=== PATIENT | female | born 1935 | race Caucasian/White ===

== ENCOUNTER 2018-01-07 12:47 | Emergency (ER) | payer MEDICARE, BC ==
[2018-01-07 13:30] LABS: AMORPHOUS SEDIMENT,URINE TRACE /HPF; APPEARANCE,URINE SLIGHTLY-CLOUDY; BILIRUBIN,URINE NEGATIVE (NEGATIVE); COLOR,URINE YELLOW; GLUCOSE, URINE NEGATIVE (NEGATIVE); KETONES,URINE NEGATIVE (NEGATIVE); LEUKOCYTE ESTERASE,URINE NEGATIVE (NEGATIVE); NITRITE,URINE NEGATIVE (NEGATIVE); PROTEIN,URINE NEGATIVE (NEGATIVE); URINE SPECIFIC GRAVITY 1.017; UROBILINOGEN,URINE NEGATIVE mg/dL (<2.0)
--- NOTE | 2018-01-07 14:31 | ER Document Report ---
ED Medical Screen (RME) - General Chief Complaint: Flank Pain Stated Complaint: BACK PAIN Time Seen by Provider: 01/07/18 14:27 Mode of Arrival: Wheelchair Information source: Patient Notes: This is an 82-year-old female with a history of an intracranial bleed, hypertension is brought in by home health care workers because of progressively worsening lumbar pain. The caregivers deny any febrile illnesses of late. Patient started having back pain 1 month ago and had a manipulation by the chiropractor 1 month ago and it was worse after the manipulation. The initial back pain episode seems to follow an episode where she was trying to clean the floor and may have fallen. There is also a history where she fell on her buttocks from the commode. The home health care workers state that she is able to walk stress that she is having pain when she is walking. TRAVEL OUTSIDE OF THE [place] IN LAST 30 DAYS: No - Related Data Allergies/Adverse Reactions: No Known Allergies Allergy (Verified 01/07/18 14:17) Past Medical History - Social History Chew tobacco use (# tins/day): No Frequency of alcohol use: None Drug Abuse: None - Past Medical History Cardiac Medical History: Reports: Hx Hypercholesterolemia, Hx Hypertension Pulmonary Medical History: Reports: Hx Pneumonia Neurological Medical History: Reports: Hx Cerebrovascular Accident - 2008 Renal/ Medical History: Denies: Hx Peritoneal Dialysis GI Medical History: Psychiatric Medical History: Reports: Hx Depression Traumatic Medical History: Reports: Hx Traumatic Brain Injury Infectious Medical History: Past Surgical History: Reports: Hx Neurologic Surgery - Immunizations Hx Diphtheria, Pertussis, Tetanus Vaccination: No Physical Exam - Vital signs Vitals: Temp Pulse Resp BP Pulse Ox 98.2 F 72 16 168/80 H 98 01/07/18 13:03 01/07/18 13:03 01/07/18 13:03 01/07/18 13:03 01/07/18 13:03 Course - Vital Signs Vital signs: Temp Pulse Resp BP Pulse Ox 98.2 F 72 16 168/80 H 98 01/07/18 13:03 01/07/18 13:03 01/07/18 13:03 01/07/18 13:03 01/07/18 13:03 - Laboratory Laboratory results interpreted by me: 01/07/18 12:50 Urine Ascorbic Acid 40 H
[2018-01-07 15:29] LABS: ABSOLUTE BASOPHILS # (AUTO) 0.1 10^3/uL (0.0-0.2); ABSOLUTE EOSINOPHILS # (AUTO) 0.2 10^3/uL (0.0-0.6); ABSOLUTE LYMPHOCYTES (AUTO) 2.4 10^3/uL (0.5-4.7); ABSOLUTE MONOCYTES (AUTO) 0.6 10^3/uL (0.1-1.4); ABSOLUTE NEUT (AUTO) 5.2 10^3/uL (1.7-8.2); BASOPHILS % (AUTO) 0.6 % (0-2); HEMATOCRIT 44.4 % (36.0-47.0); HEMOGLOBIN 14.7 g/dL (12.0-15.5); LYMPHOCYTES % (AUTO) 28.5 % (13-45); MEAN CORPUSCULAR HEMOGLOBIN 32.4 pg (27.0-33.4); MEAN CORPUSCULAR HGB CONC 33.2 g/dL (32.0-36.0); MEAN CORPUSCULAR VOLUME 98 fl (80-97); MONOCYTES % (AUTO) 7.3 % (3-13); PLATELET COUNT 208 10^3/uL (150-450); RED BLOOD COUNT 4.55 10^6/uL (3.72-5.28); RED CELL DISTRIBUTION WIDTH 14.1 % (11.5-14.0); SEGMENTED NEUTROPHILS % (AUTO) 61.6 % (42-78); TOTAL CELLS COUNTED % (AUTO) 100 %; WHITE BLOOD COUNT 8.4 10^3/uL (4.0-10.5)
--- NOTE | 2018-01-07 15:42 | ER Document Report ---
ED General - General Chief Complaint: Flank Pain Stated Complaint: BACK PAIN Time Seen by Provider: 01/07/18 14:27 Mode of Arrival: Wheelchair Information source: Patient - Grandson, caregivers Notes: 82-year-old female with history of hypertension, intracranial hemorrhage presents with her grandson and caregivers with complaint of lower back pain.Caregivers are present and give the majority of the history.Patient has had ongoing back pain for approximately 1 month. This was exacerbated after chiropractic manipulation. She also has had 2 falls in the last 3 weeks. Caregiver describes that she fell off of the commode 3 weeks prior to arrival and fell to the floor landing on her butt 1 week prior to arrival.Patient has been treated with Vicodin and Skelaxin which did Help with the patient's symptoms but currently she is only taking Tylenol.Caregiver states that patient had an exacerbation of pain this morning. They describe her screaming in pain and unable to walk independently.She has not had any recent illnesses ,fever, abdominal pain, chest pain, shortness of breath.Patient has urinary incontinence at baseline and provider stated that this has not worsened. She has not had any fecal incontinence.She had one episode of associated vomiting believed to be secondary to pain. TRAVEL OUTSIDE OF THE [place] IN LAST 30 DAYS: No - HPI Onset: Other Onset/Duration: Gradual, Worse Quality of pain: Sharp, Stabbing, Throbbing Severity: Severe Pain Level: 3 Associated symptoms: Vomiting. denies: Chest pain, Chills, Nonproductive cough , Diarrhea, Fever, Shortness of breath Exacerbated by: Movement, Walking Relieved by: Denies Similar symptoms previously: Yes Recently seen / treated by doctor: No - Related Data Allergies/Adverse Reactions: No Known Allergies Allergy (Verified 01/07/18 14:17) Past Medical History - General Information source: Patient - Social History Smoking Status: Never Smoker Chew tobacco use (# tins/day): No Frequency of alcohol use: None Drug Abuse: None Family History: Reviewed & Not Pertinent Patient has suicidal ideation: No Patient has homicidal ideation: No - Past Medical History Cardiac Medical History: Reports: Hx Hypercholesterolemia, Hx Hypertension Pulmonary Medical History: Reports: Hx Pneumonia Neurological Medical History: Reports: Hx Cerebrovascular Accident - 2007 Renal/ Medical History: Denies: Hx Peritoneal Dialysis GI Medical History: Psychiatric Medical History: Reports: Hx Depression Traumatic Medical History: Reports: Hx Traumatic Brain Injury Infectious Medical History: Past Surgical History: Reports: Hx Neurologic Surgery - Immunizations Hx Diphtheria, Pertussis, Tetanus Vaccination: No Hx Pneumococcal Vaccination: 11/08/11 Review of Systems - Review of Systems Constitutional: Weakness. denies: Diaphoresis, Fever EENT: No symptoms reported Cardiovascular: No symptoms reported Gastrointestinal: Nausea, Vomiting. denies: Abdomen distended, Abdominal pain, Diarrhea, Blood streaked bowels, Black stools, Rectal bleeding Genitourinary: No symptoms reported Musculoskeletal: Back pain Skin: No symptoms reported Physical Exam - Vital signs Vitals: Temp Pulse Resp BP Pulse Ox 98.2 F 72 16 168/80 H 98 01/07/18 13:03 01/07/18 13:03 01/07/18 13:03 01/07/18 13:03 01/07/18 13:03 - General General appearance: Appears well, Alert - Respiratory Respiratory status: No respiratory distress Chest status: Nontender Breath sounds: Normal Chest palpation: Normal - Back Back: Nontender - Midline tenderness of the lumbar spine without step-off or deformity., Tender Course - Re-evaluation Re-evalutation: 01/07/18 21:17 82-year-old female with history of hypertension and intracranial hemorrhage presents with her caregivers who are concerned for increasing back pain. There is report that patient had 2 recent falls landing on her back and buttocks. They state the pain increasingly worsened this morning and patient was crying in pain. Upon arrival vital signs were reviewed and within normal limits. Patient does not appear toxic or dehydrated. She does appear to be uncomfortable while laying in the stretcher. Exam was significant for midline tenderness of the lumbar spine. CT of the spine was obtained and significant for an acute compression fracture of L2. I discussed these findings with patient, caregiver and grandchildren. Patient is still able to ambulate with assistance. Family and caregivers feel that it is best for patient to be discharged home into their care with follow-up with orthopedic surgery. She received Percocet for pain during her ED course. She was discharged home with Percocet and Zofran. - Vital Signs Vital signs: Temp Pulse Resp BP Pulse Ox 98.7 F 82 18 131/69 H 96 01/07/18 18:18 01/07/18 18:18 01/07/18 18:18 01/07/18 18:18 01/07/18 18:18 - Laboratory Result Diagrams: 01/07/18 15:09 01/07/18 15:09 Laboratory results interpreted by me: 01/07/18 01/07/18 01/07/18 12:50 15:09 15:09 MCV 98 H RDW 14.1 H Glucose 111 H Urine Ascorbic Acid 40 H Discharge - Discharge Clinical Impression: Lumbar compression fracture, Status post fall Condition: Good Disposition: OTHER Instructions: Compression Fracture of the Spine ([facility]) Prescriptions: Hydrocodone/Acetaminophen [[place] 5-325 mg Tablet] 1 tab PO Q6H #15 tablet Ondansetron HCl [Zofran 4 mg Tablet] 1 - 2 tab PO Q4H PRN #10 tablet PRN Reason: Referrals: MIMI SILVA NP [Primary Care Provider] - Follow up as needed RENETTA MARIE DO [ACTIVE STAFF] - Follow up in 3-5 days
[2018-01-07 15:45] LABS: ALANINE AMINOTRANSFERASE 40 U/L (9-52); ALBUMIN 4.5 g/dL (3.5-5.0); ALKALINE PHOSPHATASE 104 U/L (38-126); ANION GAP 10 (5-19); ASPARTATE AMINO TRANSFERASE 29 U/L (14-36); BILIRUBIN,DIRECT 0.4 mg/dL (0.0-0.4); BILIRUBIN,TOTAL 0.5 mg/dL (0.2-1.3); BLOOD UREA NITROGEN 12 mg/dL (7-20); CALCIUM 9.5 mg/dL (8.4-10.2); CARBON DIOXIDE 28 mmol/L (22-30); CHLORIDE 102 mmol/L (98-107); GLUCOSE 111 mg/dL (75-110); POTASSIUM 4.3 mmol/L (3.6-5.0); SODIUM 139.6 mmol/L (137-145); TOTAL PROTEIN 7.5 g/dL (6.3-8.2)
--- NOTE | 2018-01-07 16:18 | RADIOLOGY REPORT (SQ) ---
EXAM DESCRIPTION: CT LUMBAR SPINE WITHOUT COMPLETED DATE/TIME: 01/07/2018 3:56 pm REASON FOR STUDY: lumbar pain s/p manipulation COMPARISON: None. TECHNIQUE: Axial images acquired through the lumbar spine without intravenous contrast. Images revi ewed with lung, soft tissue and bone windows. Reconstructed coronal and sagittal MPR images reviewed . All images stored on PACS. All CT scanners at this facility use dose modulation, iterative reconstruction, and/or weight based d osing when appropriate to reduce radiation dose to as low as reasonably achievable (ALARA). [facility]: Dose Right [facility]: CareDose [facility]: Dose Right [facility]: Teradose 4D [facility]: [email or web address] RADIATION DOSE: mGy. LIMITATIONS: None. FINDINGS: SEGMENTATION: Normal. No transitional anatomy. ALIGNMENT: Normal. VERTEBRAL BODIES: There is mild asymmetric compression of the L2 vertebra to the right of midline wit h a couple associated linear lucencies suspicious for an acute compression fracture. Clinical correl ation is recommended. No other vertebral compressions are identified. DISCS: There is multilevel disc space reduction with almost complete loss of the L4-L5 disc space hei ghts with associated discogenic sclerosis. Vacuum phenomenon are identified at the L2-L3 and L4-L5 l evels. Calcific densities are identified within the disc space at the T12-L1 level. PEDICLES, TRANSVERSE PROCESSES: No fractures. No dislocation. No acute findings. FACETS, POSTERIOR ELEMENTS: No fractures. No dislocation. No spinal stenosis. HARDWARE: Vena cava filter is identified at at the level of the L3 and L4 vertebra to the right of mi dline VISUALIZED RIBS: No fractures. SOFT TISSUES: No significant or acute finding in adjacent soft tissues. OTHER: No other significant finding. IMPRESSION: There is asymmetric compression of the L2 vertebra to the right of midline with a couple associated linear lucency suspicious for an acute compression fracture. Clinical correlation is rec ommended. No other vertebral compressions are identified. Degenerative changes as noted above. Oth er findings as noted above TECHNICAL DOCUMENTATION: JOB ID: [id number] Quality ID # 436: Final reports with documentation of one or more dose reduction techniques (e.g., Au tomated exposure control, adjustment of the mA and/or kV according to patient size, use of iterative reconstruction technique) 2010 [employer]- All Rights Reserved Reading location - IP/workstation name: [email or web address]
--- NOTE | 2018-01-07 16:26 | RADIOLOGY REPORT (SQ) ---
EXAM DESCRIPTION: CT PELVIS WITHOUT COMPLETED DATE/TIME: 01/07/2018 3:56 pm REASON FOR STUDY: pain COMPARISON: None. TECHNIQUE: CT scan of the pelvis performed without intravenous or oral contrast. Images reviewed wi th soft tissue and bone windows. Reconstructed coronal and sagittal MPR images reviewed. All images stored on PACS. All CT scanners at this facility use dose modulation, iterative reconstruction, and/or weight based d osing when appropriate to reduce radiation dose to as low as reasonably achievable (ALARA). [facility]: Dose Right [facility]: CareDose [facility]: Dose Right [facility]: Teradose 4D [facility]: [employer] RADIATION DOSE: CT Rad equipment meets quality standard of care and radiation dose reduction techniq ues were employed. CTDIvol: 6.9 mGy. DLP: 224 mGy-cm. mGy. LIMITATIONS: None. FINDINGS: PELVIC BONES: No acute fracture. No worrisome bone lesions. VISUALIZED SPINE: See results under CT of the lumbar spine. HIP(S): No acute fracture or dislocation. There is an area of bony sclerosis in the superior aspect of the left femoral head which could conceivably represent avascular necrosis. PELVIC SOFT TISSUES: No significant findings. EXTRAPELVIC SOFT TISSUES: No significant findings. OTHER: No other significant finding. IMPRESSION: No acute fracture or dislocation. There is an area bony sclerosis in the superior aspec t of the left femoral head which could conceivably represent avascular necrosis. Other findings as n oted above TECHNICAL DOCUMENTATION: JOB ID: [id number] Quality ID # 436: Final reports with documentation of one or more dose reduction techniques (e.g., Au tomated exposure control, adjustment of the mA and/or kV according to patient size, use of iterative reconstruction technique) 2010 [employer]- All Rights Reserved Reading location - IP/workstation name: [email or web address]
[2018-01-07] MEDS ORDERED: OXYCODONE-ACETAMINOPHEN 5-325 MG TABLET PO ONE (16:47)
[2018-01-07 19:27] VITALS: BP 131/69
[2018-01-07] MEDS ORDERED: PIPERACILLIN/TAZOBACTAM 3.375 GM VIAL IV ONE (21:22)
[2018-01-07] MEDS ORDERED: VANCOMYCIN HCL INJ 1000 MG VIAL IV ONE (21:22)
== END 2018-01-07 18:25 | disposition other institution (70) ==
LOC: ER 12:47
DX: S32.029A Unspecified fracture of second lumbar vertebra, initial encounter for closed fracture (principal); M54.5 Low back pain; M54.9 Dorsalgia, unspecified; R10.9 Unspecified abdominal pain; I10 Essential (primary) hypertension; R32 Unspecified urinary incontinence; W19.XXXA Unspecified fall, initial encounter; Z91.81 History of falling; Z79.899 Other long term (current) drug therapy
CPT/HCPCS: 99284; 36415; 80307; 85025; 80053; 81001; 72131; 72192; A9270

== ENCOUNTER → 2018-01-17 | Outpatient (CLI) | payer MEDICARE, BC ==
--- NOTE | 2018-01-17 15:49 | RADIOLOGY REPORT (SQ) ---
EXAM DESCRIPTION: NM WHOLE BODY BONE SCAN COMPLETED DATE/TIME: 01/17/2018 2:28 pm REASON FOR STUDY: SACROILIITIS, NOT ELSE SPECIFIED M46.1 SACROILIITIS, NOT ELSEWHERE CLASSIFIED COMPARISON: CT of the pelvis 01/07/2018 CT lumbosacral spine 01/07/2018 RADIONUCLIDE AND DOSE: Twin millicuries Tc99m HDP. The route of agent administration: Intravenous. ADDITIONAL DRUGS AND DOSES: None. TECHNIQUE: Routine delayed images at 3 hours post radionuclide injection acquired of the bony skelet on including anterior and posterior whole-body projections and additional focused images as needed. LIMITATIONS: None. FINDINGS: BONES: There is mild degenerative uptake in the shoulders and in the left side of the midc ervical spine. There is degenerative uptake in the lumbar spine. There is fairly intense uptake in the region of L1 and milder uptake at L2. Calcification is present in the T12-L1 disc. KIDNEYS: Symmetric excretion without obstruction. OTHER: No other significant finding. IMPRESSION: 1. There is intense uptake at L1 of uncertain etiology. No significant compression mickey nges are seen on the prior CT in this area. Consider MRI for further evaluation. 2. There is milder uptake at L2 were old compression changes is seen on the CT and there is milder u ptake elsewhere felt to be degenerative in nature. 3. The sacroiliac joints are normal. COMMENT: Quality measure 147: Current bone scan is compared with any available plain radiographs, p rior bone scans, and CT/MRI. TECHNICAL DOCUMENTATION: JOB ID: [id number] [employer]- All Rights Reserved Reading location - IP/workstation name: [email or web address]
== END ==
LOC: RAD 10:22
PROVIDERS: ATTEND Pain Medicine Interventional Pain Medicine
DX: S32.028A Other fracture of second lumbar vertebra, initial encounter for closed fracture (principal); M46.1 Sacroiliitis, not elsewhere classified; X58.XXXA Exposure to other specified factors, initial encounter; Y93.9 Activity, unspecified; Y92.9 Unspecified place or not applicable; Y99.9 Unspecified external cause status
CPT/HCPCS: 78306; A9561; Q9969

== ENCOUNTER → 2018-01-19 | Outpatient (CLI) | payer MEDICARE, BC ==
[2018-01-19 12:01] LABS: APPEARANCE,URINE CLOUDY; BILIRUBIN,URINE NEGATIVE (NEGATIVE); GLUCOSE, URINE NEGATIVE (NEGATIVE); KETONES,URINE NEGATIVE (NEGATIVE); LEUKOCYTE ESTERASE,URINE SMALL (NEGATIVE); NITRITE,URINE POSITIVE (NEGATIVE); PROTEIN,URINE NEGATIVE (NEGATIVE); UROBILINOGEN,URINE NEGATIVE mg/dL (<2.0)
[2018-01-19 12:03] LABS: COLOR,URINE DARK YELLOW
[2018-01-19 12:53] LABS: ABSOLUTE BASOPHILS # (AUTO) 0.1 10^3/uL (0.0-0.2); ABSOLUTE EOSINOPHILS # (AUTO) 0.4 10^3/uL (0.0-0.6); ABSOLUTE LYMPHOCYTES (AUTO) 2.2 10^3/uL (0.5-4.7); ABSOLUTE MONOCYTES (AUTO) 0.9 10^3/uL (0.1-1.4); ABSOLUTE NEUT (AUTO) 8.6 10^3/uL (1.7-8.2); BASOPHILS % (AUTO) 0.5 % (0-2); EOSINOPHILS % (AUTO) 3.5 % (0-6); HEMOGLOBIN 14.6 g/dL (12.0-15.5); LYMPHOCYTES % (AUTO) 18.2 % (13-45); MEAN CORPUSCULAR HEMOGLOBIN 32.1 pg (27.0-33.4); MEAN CORPUSCULAR HGB CONC 32.5 g/dL (32.0-36.0); MEAN CORPUSCULAR VOLUME 99 fl (80-97); PLATELET COUNT 236 10^3/uL (150-450); RED BLOOD COUNT 4.55 10^6/uL (3.72-5.28); RED CELL DISTRIBUTION WIDTH 14.2 % (11.5-14.0); SEGMENTED NEUTROPHILS % (AUTO) 70.8 % (42-78); TOTAL CELLS COUNTED % (AUTO) 100 %; WHITE BLOOD COUNT 12.2 10^3/uL (4.0-10.5)
[2018-01-19 13:02] LABS: INTERNATIONAL RATION (INR) 0.98; PROTHROMBIN TIME 13.7 SEC (11.4-15.4)
[2018-01-19 13:03] LABS: PARTIAL THROMBOPLASTIN TIME 28.3 SEC (23.5-35.8)
== END ==
LOC: OD 11:10
PROVIDERS: ATTEND Pain Medicine Interventional Pain Medicine
DX: S32.028A Other fracture of second lumbar vertebra, initial encounter for closed fracture (principal); X58.XXXA Exposure to other specified factors, initial encounter
CPT/HCPCS: 36415; 81001; 85025; 85610; 85730

== ENCOUNTER 2018-01-24 07:16 | Day surgery (SDC) | payer MEDICARE, BC ==
[~2018-01-24 07:16] MED LIST: CEFAZOLIN 1 GM/D5W RTU 1 GM/50 ML RTUPB IV PRN; LIDOCAINE 1% INJ-PF (10 MG/ML) 30 ML SDV ONE; SODIUM BICARBONATE 8.4% INJ 50 MEQ/50 ML DISP.SYRIN ONE
[2018-01-24 08:02] LABS: HEMATOCRIT 43.5 % (36.0-47.0); HEMOGLOBIN 14.5 g/dL (12.0-15.5); MEAN CORPUSCULAR HEMOGLOBIN 32.5 pg (27.0-33.4); MEAN CORPUSCULAR HGB CONC 33.2 g/dL (32.0-36.0); MEAN CORPUSCULAR VOLUME 98 fl (80-97); PLATELET COUNT 224 10^3/uL (150-450); RED BLOOD COUNT 4.45 10^6/uL (3.72-5.28); RED CELL DISTRIBUTION WIDTH 14.4 % (11.5-14.0); WHITE BLOOD COUNT 8.3 10^3/uL (4.0-10.5)
[2018-01-24 08:06] LABS: AMORPHOUS SEDIMENT,URINE TRACE /HPF; APPEARANCE,URINE SLIGHTLY-CLOUDY; BILIRUBIN,URINE NEGATIVE (NEGATIVE); COLOR,URINE YELLOW; GLUCOSE, URINE NEGATIVE (NEGATIVE); KETONES,URINE NEGATIVE (NEGATIVE); LEUKOCYTE ESTERASE,URINE NEGATIVE (NEGATIVE); NITRITE,URINE NEGATIVE (NEGATIVE); PROTEIN,URINE NEGATIVE (NEGATIVE); URINE SPECIFIC GRAVITY 1.014; UROBILINOGEN,URINE NEGATIVE mg/dL (<2.0)
[2018-01-24 08:25] LABS: INTERNATIONAL RATION (INR) 0.94; PARTIAL THROMBOPLASTIN TIME 29.2 SEC (23.5-35.8); PROTHROMBIN TIME 13.2 SEC (11.4-15.4)
[2018-01-24] MEDS ORDERED: ONDANSETRON HCL INJ/PF 4 MG/2 ML SDV ONE (09:35)
[2018-01-24] MEDS ORDERED: MIDAZOLAM 2 MG/2 ML INJ ONE (09:35)
[2018-01-24] MEDS ORDERED: FENTANYL CITRATE INJ/PF 100 MCG/2 ML AMPUL ONE (09:35)
[2018-01-24] MEDS ORDERED: LIDOCAINE 2% INJ-PF (20 MG/ML) 10 ML AMPUL ONE (09:35)
[2018-01-24] MEDS ORDERED: PROPOFOL INJ 200 MG/20 ML VIAL IV ONE (09:36)
--- NOTE | 2018-01-24 10:02 | EKG REPORT ---
SEVERITY:- ABNORMAL ECG - SINUS RHYTHM PROBABLE LEFT VENTRICULAR HYPERTROPHY : Confirmed by: Yasmeen Orellana 24-Jan-2018 10:01:27
[2018-01-24] MEDS ORDERED: LIDOCAINE 1% INJ-PF (10 MG/ML) 30 ML SDV ONE (10:06)
[2018-01-24] MEDS ORDERED: KETAMINE HCL INJ 500 MG/10 ML VIAL ONE (10:15)
[2018-01-24] MEDS ORDERED: OXYCODONE-ACETAMINOPHEN 5-325 MG TABLET PO PRN ×2 (10:36→11:49)
[2018-01-24] MEDS ORDERED: MEPERIDINE HCL/PF INJ 25 MG/1 ML DISP.SYRIN IV PRN (10:36)
[2018-01-24] MEDS ORDERED: PROMETHAZINE HCL INJ 25 MG/1 ML VIAL IV PRN (10:36)
[2018-01-24] MEDS ORDERED: ONDANSETRON HCL INJ/PF 4 MG/2 ML SDV IV PRN (10:36)
[2018-01-24] MEDS ORDERED: FENTANYL CITRATE INJ/PF 100 MCG/2 ML AMPUL IV PRN ×2 (10:36)
[2018-01-24] MEDS ORDERED: DIPHENHYDRAMINE HCL 50 MG/ML VIAL IV PRN (10:36)
[2018-01-24] MEDS ORDERED: LIDOCAINE 1%/EPINEPHRINE INJ 20 ML VIAL ONE (11:01)
[2018-01-24] MEDS ORDERED: CEFAZOLIN INJ 1 GM VIAL ONE (11:36)
--- NOTE | 2018-01-24 12:54 | OPERATIVE REPORT E ---
Operative Report NAME: DANELLE BONILLA : 1935 AGE: 82Y DATE OF SURGERY: 01/24/2018 ROOM: PREOPERATIVE DIAGNOSIS: L1 and L2 vertebral compression fractures with intractable pain. POSTOPERATIVE DIAGNOSIS: L1 and L2 vertebral compression fractures with intractable pain. OPERATIVE PROCEDURE: Vertebral body L1 and L2 balloon kyphoplasty using perpendicular approach as well as vertebral body biopsy at each level on both sides. SURGEON: ADRIAN FOLEY M.D. ANESTHESIA: MAC. INDICATIONS: Intractable pain. COMPLICATIONS: None. BLOOD LOSS: Approximately 20 mL. SPECIMENS REMOVED: As described above, biopsy fragments. PROCEDURE NOTE: After obtaining informed consent from the patient's family who have power of it help desk associate, explaining the risks and benefits including serious neurological injury, bleeding, infection, paralysis, allergic reaction, failure to treat pain, and , she was taken to the operating room and placed comfortably in the prone position. Comfort was assessed visually and verbally. Monitors were applied per anesthesia. Sedation was administered. She was prepped with chlorhexidine with appropriate drying time followed by draping. Fluoroscopy had been set up and views were reassessed multiple times to assure proper location. Images were compared to CT imaging. Beginning at the L1 level using a right perpendicular approach, a suitable skin entrance site was selected followed by subcutaneous administration of local anesthetic 1% lidocaine with bicarb down to the surface of the pedicle. A small incision was made. The Express trocar was then advanced in a perpendicular location entering into the vertebral body prior to crossing the pedicular midline on that level. Biopsy trocar was placed and removed with a satisfactory biopsy. A drill was placed followed by placement of bone in satisfactory location. This was repeated on the left side as described above. Balloons were all inflated. The procedure was then repeated on the L2 level, again beginning on the right followed by the left with the same technique as described above. Once all the balloons were satisfactorily inflated and felt to be in good location, the balloons at L1 were deflated and removed and cement was administered. At the L1 level, there was a total of 1.8 mL administered through the right trocar followed by 2.0 mL through the left trocar. The fluoro tubes were removed followed by placement of Stylette's and attention was directed towards filling the L2 vertebral body with 1.6 on the right and 2.2 mL on the left. Stylette's were then placed through this and the cement was allowed to harden. All Express trocars were then removed. There was some bleeding through the sites and lidocaine with epinephrine was requested and administered to the injection sites with good hemostasis. The region was cleansed. Dermabond cement was placed over each of the insertion sites. Telfa and Tegaderm were placed over this. She was then taken to the PACU for further postoperative care and monitoring. She remained neurologically and hemodynamically intact. DICTATING PHYSICIAN: ADRIAN FOLEY M.D. [id number] PHY#: [id number] ID: [id number] JOB#: [id number] ACCT: [id number] cc:ADRIAN FOLEY M.D. >
[2018-01-24 15:16] VITALS: BP 127/61
--- NOTE | 2018-01-24 16:03 | RADIOLOGY REPORT (SQ) ---
EXAM DESCRIPTION: L SPINE 2 VIEWS COMPLETED DATE/TIME: 01/24/2018 3:00 pm REASON FOR STUDY: KYPHOPLASTY L1 AND L2 ASST WITH FLUORO IN OR S32.028A OTH FRACTURE OF SECOND LUMB AR VERTEBRA, INIT FOR CL COMPARISON: CT of the lumbar spine dated 01/07/2018 FLUOROSCOPY TIME: 4.4 minutes 44 images saved to PACS. TECHNIQUE: Intra-operative images acquired during surgical procedure to evaluate progress. NUMBER OF IMAGES: 44 LIMITATIONS: None. FINDINGS: Fluoroscopic images were obtained during performance of a kyphoplasty at 2 levels. Please refer to the surgeon's operative report for additional information. IMPRESSION: IMAGE(S) OBTAINED DURING PROCEDURE. COMMENT: Quality ID 145: Final reports for procedures using fluoroscopy that document radiation exp osure indices, or exposure time and number of fluorographic images (if radiation exposure indices are not available) Please consult full operative report of the attending physician for description of the procedure. TECHNICAL DOCUMENTATION: JOB ID: [id number] [employer]- All Rights Reserved Reading location - IP/workstation name: [email or web address]
--- NOTE | 2018-01-24 16:04 | RADIOLOGY REPORT (SQ) ---
EXAM DESCRIPTION: NO CHG FLUORO COMPLETE DATE/TIME: 01/24/2018 3:00 pm REASON FOR STUDY: KYPHOPLASTY L1 AND L2 ASST WITH FLUORO IN OR S32.028A OTH FRACTURE OF SECOND LUMB AR VERTEBRA, INIT FOR CL FINDINGS: Please see combined report for performance of procedure and radiologic supervision and int erpretation. IMPRESSION: Please see combined report for performance of procedure and radiologic supervision and i nterpretation. Reading location - IP/workstation name: [email or web address]
== END 2018-01-24 14:20 | disposition home or self-care (01) ==
LOC: OROUT 07:16
PROVIDERS: ATTEND Pain Medicine Interventional Pain Medicine
PROC: 0QU03JZ Supplement Lumbar Vertebra with Synthetic Substitute, Percutaneous Approach (ICD-10-PCS; 2018-01-24)
PROC: 0QB03ZX Excision of Lumbar Vertebra, Percutaneous Approach, Diagnostic (ICD-10-PCS; 2018-01-24)
PROC: 0QS03ZZ Reposition Lumbar Vertebra, Percutaneous Approach (ICD-10-PCS; principal; 2018-01-24 09:00)
DX: S32.028A Other fracture of second lumbar vertebra, initial encounter for closed fracture (principal); S32.018A Other fracture of first lumbar vertebra, initial encounter for closed fracture; X58.XXXA Exposure to other specified factors, initial encounter; E78.00 Pure hypercholesterolemia, unspecified; I10 Essential (primary) hypertension; M46.1 Sacroiliitis, not elsewhere classified; G89.11 Acute pain due to trauma; F03.90 Unspecified dementia, unspecified severity, without behavioral disturbance, psychotic disturbance, mood disturbance, and anxiety; I49.9 Cardiac arrhythmia, unspecified; Z86.73 Personal history of transient ischemic attack (TIA), and cerebral infarction without residual deficits; Z87.820 Personal history of traumatic brain injury; Z79.891 Long term (current) use of opiate analgesic; Z79.899 Other long term (current) drug therapy
CPT/HCPCS: 36415; 85027; 85610; 85730; 81001; 88305 ×2; 72100; 93005; 93010; 22514; 22515; Q9966; J2250; J0690 ×2; J3010; J3490 ×5; J2405; J2704; 1936

== ENCOUNTER → 2018-03-04 | Outpatient (CLI) | payer MEDICARE, BC ==
--- NOTE | 2018-03-04 10:24 | RADIOLOGY REPORT (SQ) ---
EXAM DESCRIPTION: CT LUMBAR SPINE WITHOUT COMPLETED DATE/TIME: 03/04/2018 9:55 am REASON FOR STUDY: OTHER FX OF SECOND LUMBAR VERTEBRA, SEQUELA S32.028S OTHER FRACTURE OF SECOND LUM BAR VERTEBRA, SEQUELA COMPARISON: 01/07/2018. TECHNIQUE: Axial images acquired through the lumbar spine without intravenous contrast. Images revi ewed with lung, soft tissue and bone windows. Reconstructed coronal and sagittal MPR images reviewed . All images stored on PACS. All CT scanners at this facility use dose modulation, iterative reconstruction, and/or weight based d osing when appropriate to reduce radiation dose to as low as reasonably achievable (ALARA). [facility]: Dose Right [facility]: CareDose [facility]: Dose Right [facility]: Teradose 4D [facility]: [employer] RADIATION DOSE: CT Rad equipment meets quality standard of care and radiation dose reduction techniq ues were employed. CTDIvol: 5.5 mGy. DLP: 165 mGy-cm. mGy. LIMITATIONS: None. FINDINGS: Bones are osteopenic. There has been interval kyphoplasty L1-L2. New compression fractur e of L4 with approximately 30% height loss. No significant retropulsion. Alignment is unchanged. M ultilevel spondylosis and facet arthropathy. Stable position of IVC filter. IMPRESSION: Recent compression fracture L4 status post kyphoplasty L1 and L2. TECHNICAL DOCUMENTATION: JOB ID: [id number] Quality ID # 436: Final reports with documentation of one or more dose reduction techniques (e.g., Au tomated exposure control, adjustment of the mA and/or kV according to patient size, use of iterative reconstruction technique) 2010 [employer]- All Rights Reserved Reading location - IP/workstation name: [email or web address]
== END ==
LOC: RAD 09:37
PROVIDERS: ATTEND Pain Medicine Interventional Pain Medicine
DX: S32.028S Other fracture of second lumbar vertebra, sequela (principal); X58.XXXS Exposure to other specified factors, sequela
CPT/HCPCS: 72131

== ENCOUNTER → 2018-03-04 | Outpatient (CLI) | payer MEDICARE, BC ==
[2018-03-04 14:24] LABS: INTERNATIONAL RATION (INR) 0.93; PROTHROMBIN TIME 12.9 SEC (11.4-15.4)
[2018-03-04 14:33] LABS: ABSOLUTE EOSINOPHILS # (AUTO) 0.1 10^3/uL (0.0-0.6); ABSOLUTE LYMPHOCYTES (AUTO) 1.7 10^3/uL (0.5-4.7); ABSOLUTE MONOCYTES (AUTO) 0.5 10^3/uL (0.1-1.4); ABSOLUTE NEUT (AUTO) 5.1 10^3/uL (1.7-8.2); BASOPHILS % (AUTO) 0.5 % (0-2); EOSINOPHILS % (AUTO) 1.4 % (0-6); HEMATOCRIT 40.7 % (36.0-47.0); HEMOGLOBIN 13.7 g/dL (12.0-15.5); LYMPHOCYTES % (AUTO) 23.1 % (13-45); MEAN CORPUSCULAR HEMOGLOBIN 33.5 pg (27.0-33.4); MEAN CORPUSCULAR HGB CONC 33.7 g/dL (32.0-36.0); MEAN CORPUSCULAR VOLUME 99 fl (80-97); MONOCYTES % (AUTO) 6.6 % (3-13); PLATELET COUNT 186 10^3/uL (150-450); RED CELL DISTRIBUTION WIDTH 14.4 % (11.5-14.0); SEGMENTED NEUTROPHILS % (AUTO) 68.4 % (42-78); TOTAL CELLS COUNTED % (AUTO) 100 %; WHITE BLOOD COUNT 7.5 10^3/uL (4.0-10.5)
[2018-03-04 16:38] LABS: APPEARANCE,URINE SLIGHTLY-CLOUDY; BILIRUBIN,URINE NEGATIVE (NEGATIVE); CALCIUM OXALATE CRYSTALS,URINE RARE /HPF; GLUCOSE, URINE NEGATIVE (NEGATIVE); KETONES,URINE TRACE mg/dL (NEGATIVE); LEUKOCYTE ESTERASE,URINE NEGATIVE (NEGATIVE); NITRITE,URINE NEGATIVE (NEGATIVE); PROTEIN,URINE 30 mg/dL (NEGATIVE); URINE SPECIFIC GRAVITY 1.028
[2018-03-04 16:44] LABS: COLOR,URINE YELLOW
== END ==
LOC: OD 13:00
PROVIDERS: ATTEND Pain Medicine Interventional Pain Medicine
DX: S32.009A Unspecified fracture of unspecified lumbar vertebra, initial encounter for closed fracture (principal); X58.XXXA Exposure to other specified factors, initial encounter; Z51.81 Encounter for therapeutic drug level monitoring
CPT/HCPCS: 36415; 81001; 85025; 85610; 85730

== ENCOUNTER 2018-03-08 10:22 | Day surgery (SDC) | payer MEDICARE, BC ==
[~2018-03-08 10:22] MED LIST changes: +LACTATED RINGERS 1000 ML IV PRN; +LIDOCAINE 0.5% INJ-PF (5 MG/ML) 50 ML SDV SUBCUT PRN; -LIDOCAINE 1% INJ-PF (10 MG/ML) 30 ML SDV ONE; -SODIUM BICARBONATE 8.4% INJ 50 MEQ/50 ML DISP.SYRIN ONE
[2018-03-08] MEDS ORDERED: MIDAZOLAM 2 MG/2 ML INJ ONE (11:00)
[2018-03-08] MEDS ORDERED: ONDANSETRON HCL INJ/PF 4 MG/2 ML SDV ONE (11:00)
[2018-03-08] MEDS ORDERED: FENTANYL CITRATE INJ/PF 100 MCG/2 ML AMPUL ONE (11:00)
[2018-03-08] MEDS ORDERED: PROPOFOL INJ 200 MG/20 ML VIAL IV ONE (11:01)
[2018-03-08] MEDS ORDERED: LIDOCAINE 1% INJ-PF (10 MG/ML) 30 ML SDV ONE (11:02)
[2018-03-08 12:01] LABS: ANION GAP 11 (5-19); BLOOD UREA NITROGEN 14 mg/dL (7-20); CALCIUM 9.9 mg/dL (8.4-10.2); CARBON DIOXIDE 28 mmol/L (22-30); CHLORIDE 103 mmol/L (98-107); GLUCOSE 121 mg/dL (75-110); POTASSIUM 3.9 mmol/L (3.6-5.0); SODIUM 141.8 mmol/L (137-145)
[2018-03-08] MEDS ORDERED: DIPHENHYDRAMINE HCL 50 MG/ML VIAL IV PRN (12:56)
[2018-03-08] MEDS ORDERED: FENTANYL CITRATE INJ/PF 100 MCG/2 ML AMPUL IV PRN ×2 (12:56)
[2018-03-08] MEDS ORDERED: MEPERIDINE HCL/PF INJ 25 MG/1 ML DISP.SYRIN IV PRN (12:56)
[2018-03-08] MEDS ORDERED: CEFAZOLIN INJ 1 GM VIAL ONE (13:31)
--- NOTE | 2018-03-08 13:46 | OPERATIVE REPORT E ---
Operative Report NAME: DANELLE BONILLA : 1935 AGE: 82Y DATE OF SURGERY: 03/08/2018 ROOM: PREOPERATIVE DIAGNOSIS: L4 vertebral compression fracture. POSTOPERATIVE DIAGNOSIS: L4 vertebral compression fracture. OPERATION: Percutaneous balloon kyphoplasty. SURGEON: ARCADIO GEIGER M.D. COMMUNICATION EQUIPMENT MECHANIC: Dr. Pieter Portillo ANESTHESIA: MAC. COMPLICATIONS: None. PROCEDURE NOTE: After obtaining informed consent and advising the patient of the risks and benefits, including serious neurological injury, bleeding, infection, paralysis, allergic reaction, , failure to adequately treat pain, she was taken to the operating suite. She was placed comfortably in a prone position as determined by Anesthesia. She was prepped and draped. C-arm was brought in for lateral and AP visualization and draped appropriately. Beginning at the L4 level using a right peripedicular approach a suitable skin entry site was identified and anesthetized with 1% lidocaine with bicarb. A small incision was made. The Express trocar was advanced under serial fluoroscopic views in AP and lateral positions, entering the peripedicular approach and medializing after passing into the vertebral body to be posteromedial to the medial pedicular wall. A drill was then placed and removed followed by the balloon. The procedure was then repeated using a left peripedicular approach at the same vertebral level. When all the balloons were sufficiently inflated the cement mixture was then mixed and using the filler tubes beginning at the L4 level filling was performed. A total of 4.4 mL of mixture were placed on both sides. The upper level was then filled after removing the balloons with a total of 3 mL on the right and 1.4 mL on the left. After the filler tubes were removed, stylettes were placed into the trocars, and cement was allowed to harden prior to removing the trocars. The region was then cleaned. Steri-Strips were placed. The patient was taken to the PACU for further postoperative care and monitoring. DICTATING PHYSICIAN: ARCADIO GEIGER M.D. [id number] PHY#: [id number] ID: [id number] JOB#: [id number] ACCT: [id number] cc:ARCADIO GEIGER M.D. >
[2018-03-08] MEDS ORDERED: OXYCODONE-ACETAMINOPHEN 5-325 MG TABLET PO PRN (13:55)
[2018-03-08 16:04] VITALS: BP 106/62
--- NOTE | 2018-03-08 16:46 | RADIOLOGY REPORT (SQ) ---
EXAM DESCRIPTION: L SPINE 2 VIEWS COMPLETED DATE/TIME: 03/08/2018 3:21 pm REASON FOR STUDY: KYPHOPLASTY L4 ASST W FLUORO IN OR S32.009A UNSP FRACTURE OF UNSP LUMBAR VERTEBRA , INIT FOR PEREZ COMPARISON: None. FLUOROSCOPY TIME: 1.6 minutes 3 images saved to PACS. TECHNIQUE: Intra-operative images acquired during surgical procedure to evaluate progress. NUMBER OF IMAGES: 3 images LIMITATIONS: None. FINDINGS: Fluoroscopic images were obtained during performance of kyphoplasty. Please refer to the surgeon's operative report for additional information. IMPRESSION: IMAGE(S) OBTAINED DURING PROCEDURE. COMMENT: Quality ID 145: Final reports for procedures using fluoroscopy that document radiation exp osure indices, or exposure time and number of fluorographic images (if radiation exposure indices are not available) Please consult full operative report of the attending physician for description of the procedure. TECHNICAL DOCUMENTATION: JOB ID: [id number] [email or web address]- All Rights Reserved Reading location - IP/workstation name: [email or web address]
--- NOTE | 2018-03-08 16:47 | RADIOLOGY REPORT (SQ) ---
EXAM DESCRIPTION: NO CHG FLUORO COMPLETE DATE/TIME: 03/08/2018 3:21 pm REASON FOR STUDY: KYPHOPLASTY L4 ASST W FLUORO IN OR S32.009A UNSP FRACTURE OF UNSP LUMBAR VERTEBRA , INIT FOR PEREZ FINDINGS: Please see combined report for performance of procedure and radiologic supervision and int erpretation. IMPRESSION: Please see combined report for performance of procedure and radiologic supervision and i nterpretation. Reading location - IP/workstation name: [email or web address]
== END 2018-03-08 15:50 | disposition home or self-care (01) ==
LOC: OROUT 10:22
PROVIDERS: ATTEND Student in an Organized Health Care Education/Training Program
DX: S32.028S Other fracture of second lumbar vertebra, sequela (principal); X58.XXXS Exposure to other specified factors, sequela; S32.009A Unspecified fracture of unspecified lumbar vertebra, initial encounter for closed fracture; I10 Essential (primary) hypertension; E78.00 Pure hypercholesterolemia, unspecified; M51.36 Other intervertebral disc degeneration, lumbar region; M19.90 Unspecified osteoarthritis, unspecified site; Z79.899 Other long term (current) drug therapy; Z86.73 Personal history of transient ischemic attack (TIA), and cerebral infarction without residual deficits
CPT/HCPCS: 36415; 84132; 80048; 72100; 22514; Q9966; J2250; J0690 ×2; J3010; J3490; J2405; J2704; 1936